=== PATIENT | female | born 1970 | race Caucasian/White ===

== ENCOUNTER 2017-11-03 02:47 | Emergency (ER) | payer BC, OTHER ==
[2017-11-03 03:16] LABS: AMPHETAMINE SCREEN URINE NOT DETECTED; BARBITURATE SCREEN URINE NOT DETECTED; BENZODIAZEPINE SCREEN URINE NOT DETECTED; COCAINE SCREEN URINE NOT DETECTED; METHADONE SCREEN URINE NOT DETECTED; METHAMPHETAMINE SCREEN NOT DETECTED; OPIATE SCREEN URINE NOT DETECTED; OXYCODONE SCREEN URINE NOT DETECTED; PHENCYCLIDINE SCREEN URINE NOT DETECTED; PROPOXYPHENE SCREEN URINE NOT DETECTED; THC SCREEN URINE NOT DETECTED; TRICYCLIC ANTIDEPRESSANT SCRN NOT DETECTED
--- NOTE | 2017-11-03 03:28 | Emergency Department Record ---
History of Present Illness - General Chief Complaint: Bloodborne Pathogen Exposure Stated Complaint: NEEDLE STICK/[employer] Time Seen by Provider: 11/03/17 03:22 Source: Patient Mode of Arrival: Ambulatory - History of Present Illness Initial comments: The patient was holding the patient port with the gauze and removing the needle from the port. It was stuck so the patient (nurse) pulled hard and it pierced her glove, knicking her left thumb with the needle. Her tetanus is UTD. - Carrier Coma Scale Eye Response: (4) Open spontaneously Motor Response: (6) Obeys commands Verbal Response: (5) Oriented [place] Total: 15 - Related Data Home Medications Medication Instructions Recorded Confirmed Last Taken No Home Med [NO HOME MEDS] 11/03/17 11/03/17 Unknown Allergies Allergy/AdvReac Type Severity Reaction Status Date / Time sertraline HCl [From Zoloft] Allergy Mild DIZZYNESS Unverified 07/21/17 10:23 Travel Screening - Travel/Exposure Within Last 30 Days Have you traveled within the last 30 days?: No - Travel Symptoms Symptom Screening: None Review of Systems Reviewed: No additional complaints except as noted below Constitutional: Reports: As per HPI. Denies: Chills, Fever, Malaise, Night sweats, Weakness, Weight change Eyes: Reports: As per HPI. Denies: Eye discharge, Eye pain, Photophobia, Vision change ENT: Reports: As per HPI. Denies: Congestion, Dental pain, Ear pain, Epistaxis , Hearing loss, Throat pain Respiratory: Reports: As per HPI. Denies: Cough, Dyspnea, Hemoptysis, Stridor, Wheezes Cardiovascular: Reports: As per HPI. Denies: Arrhythmia, Chest pain, Dyspnea on exertion, Edema, Murmurs, Orthopnea, Palpitations, Paroxysmal nocturnal dyspnea, Rheumatic Fever, Syncope Endocrine: Reports: As per HPI. Denies: Fatigue, Heat or cold intolerance, Polydipsia, Polyuria Gastrointestinal: Reports: As per HPI. Denies: Abdominal pain, Constipation, Diarrhea, Hematemesis, Hematochezia, Melena, Nausea, Vomiting Genitourinary: Reports: As per HPI. Denies: Abnormal menses, Discharge, Dyspareunia, Dysuria, Frequency, Hematuria, Incontinence, Retention, Urgency Musculoskeletal: Reports: As per HPI. Denies: Arthralgia, Back pain, Gout, Joint swelling, Myalgia, Neck pain Skin: Reports: As per HPI. Denies: Bruising, Change in color, Change in hair/ nails, Lesions, Pruritus, Rash Neurological: Reports: As per HPI. Denies: Abnormal gait, Confusion, Headache, Numbness, Paresthesias, Seizure, Tingling, Tremors, Vertigo, Weakness Psychiatric: Reports: As per HPI. Denies: Anxiety, Auditory hallucinations, Depression, Homicidal thoughts, Suicidal thoughts, Visual hallucinations Hematological/Lymphatic: Reports: As per HPI. Denies: Anemia, Blood Clots, Easy bleeding, Easy bruising, Swollen glands Past Medical History - SOCIAL HISTORY Smoking Status: Former smoker Alcohol Use: None Drug Use: None - RESPIRATORY Hx Respiratory Disorders: No - CARDIOVASCULAR Hx Cardio Disorders: No - NEURO Hx Neuro Disorders: No - GI Hx GI Disorders: No - Hx Genitourinary Disorders: No - ENDOCRINE Hx Endocrine Disorders: No - MUSCULOSKELETAL Hx Musculoskeletal Disorders: No - PSYCH Hx Psych Problems: No - HEMATOLOGY/ONCOLOGY Hx Hematology/Oncology Disorders: No Family Medical History Any Significant Family History?: Yes Hx Cancer: Grandparents *Cancer Comment: breast Hx Dementia: Grandparents Hx Diabetes: Father Hx Heart Disease: Father Physical Exam - General General Appearance: Alert, Oriented x3, Cooperative, No acute distress - Head Head exam: Normal inspection - Eye Eye exam: Normal appearance, PERRL Pupils: Normal accommodation - ENT ENT exam: Normal exam, Mucous membranes moist, Normal external ear exam, Normal orophraynx Ear exam: Normal external inspection. negative: External canal tenderness Nasal Exam: Normal inspection. negative: Discharge, Sinus tenderness Mouth exam: Normal external inspection Teeth exam: Normal inspection. negative: Dental caries Throat exam: Normal inspection. negative: Tonsillar erythema, Tonsillar exudate - Neck Neck exam: Normal inspection, Full ROM. negative: Tenderness - Respiratory Respiratory exam: negative: Respiratory distress - Cardiovascular Cardiovascular Exam: Regular rate, Normal rhythm - GI/Abdominal GI/Abdominal exam: Soft. negative: Tenderness - Rectal Rectal exam: Deferred - exam: Deferred - Extremities Extremities exam: Normal inspection, Full ROM, Normal capillary refill. negative: Tenderness Image of Hand: 1 - tiny puncture on radial aspect of left thumb nail. Bleeding controlled. - Back Back exam: Reports: Normal inspection, Full ROM. Denies: Muscle spasm, Rash noted, Tenderness - Neurological Neurological exam: Alert, CN II-XII intact, Normal gait, Oriented X3, Reflexes normal. negative: Motor sensory deficit - Psychiatric Psychiatric exam: Normal affect, Normal mood - Skin Skin exam: Dry, Intact, Normal color, Warm Course Vital Signs 11/03/17 02:49 Temperature 98.6 F Pulse Rate 72 Respiratory 20 Rate Blood Pressure 144/96 Pulse Ox 99 Medical Decision Making - Management Options MDM Management: No Additional Work-up Planned - Data Complexity MDM Data: Labs Ordered and/or Reviewed - Lab Data Lab Results 11/03/17 Range/Units 03:00 Urine Opiates Screen Not detected Ur Oxycodone Screen Not detected Urine Methadone Screen Not detected Ur Propoxyphene Screen Not detected Ur Barbiturates Screen Not detected Tricyclics Screen Not detected Ur Phencyclidine Scrn Not detected Ur Amphetamine Screen Not detected U Methamphetamines Scrn Not detected U Benzodiazepines Scrn Not detected Urine Cocaine Screen Not detected U Marijuana (THC) Screen Not detected Disposition Disposition: Discharge Clinical Impression: Occupational exposure in workplace Puncture wound of left thumb Qualifiers: Encounter type: initial encounter Qualified Code(s): S61.032A - Puncture wound without foreign body of left thumb without damage to nail, initial encounter Disposition: Home, Self-Care Condition: (1) Good Instructions: Puncture Wound (ED), Acute Wound Care (ED) Additional Instructions: Keep thumb clean and dry and covered for protection. Follow up with Employee health as needed. Tylenol or ibuprofen as directed as needed for pain. Forms: Patient Portal Access Quality - Quality Measures Quality Measures: N/A - Blood Pressure Screening Does Patient Have Any of the Following: No Blood Pressure Classification: Hypertensive Reading Systolic Measurement: 144 Diastolic Measurement: 96 Screening for High Blood Pressure: < Pre-Hypertensive BP, F/U Documented > [ [id number]] Pre-Hypertensive Follow-up Interventions: Follow-up with rescreen every year.
[2017-11-03 21:50] LABS: HEP A AB IGM Nonreactive (Nonreactive); HEPATITIS B CORE ANTIBODY,IGM Nonreactive (Nonreactive); HEPATITIS B SURFACE ANTIGEN Nonreactive (Nonreactive); HEPATITIS C VIRUS ANTIBODY Nonreactive (Nonreactive)
== END 2017-11-03 03:39 | disposition home or self-care (01) ==
LOC: ER 02:47
DX: S61.032A Puncture wound without foreign body of left thumb without damage to nail, initial encounter (principal); W45.8XXA Other foreign body or object entering through skin, initial encounter; W46.0XXA Contact with hypodermic needle, initial encounter; Y93.F9 Activity, other caregiving; Y92.238 Other place in hospital as the place of occurrence of the external cause; Y99.0 Civilian activity done for income or pay
CPT/HCPCS: 99283 ×2; 80305 ×10; 87390; G0477 ×2

== ENCOUNTER 2018-03-22 07:16 | Day surgery (SDC) | payer BC ==
[~2018-03-22 07:16] MED LIST: ACETAMINOPHEN 1,000 MG/100 ML BTL IV ONE; FAMOTIDINE 20MG TABLET PO ONE; MECLIZINE 25 MG TABLET PO ONE; METOCLOPRAMIDE 10 MG TABLET PO ONE
[2018-03-22] MEDS ORDERED: SUCCINYLCHOLINE 20 MG/ML 10ML IVP ONE (07:17)
[2018-03-22] MEDS ORDERED: PROPOFOL 10 MG/ML VIAL IV ONE (07:17)
[2018-03-22] MEDS ORDERED: BUPIVACAINE 0.25% W/EPI MPF 30ML VIAL IVP ONE (07:17)
[2018-03-22] MEDS ORDERED: DEXAMETHASONE 4 MG/ML 1ML VIAL IVP ONE (07:17)
[2018-03-22] MEDS ORDERED: FENTANYL PF 100MCG/2ML VIAL IV ONE (07:17)
[2018-03-22] MEDS ORDERED: NEOSTIGMINE 1 MG/1 ML,10ML VIAL IV ONE (07:17)
[2018-03-22] MEDS ORDERED: ONDANSETRON HCL IV 4 MG/2 ML VIAL IVP ONE (07:17)
[2018-03-22] MEDS ORDERED: LIDOCAINE 2% MDV (20MG/ML) 20ML VIAL IV ONE (07:17)
[2018-03-22] MEDS ORDERED: DESFLURANE 240 ML BTL INH ONE (07:17)
[2018-03-22] MEDS ORDERED: MIDAZOLAM HCL 2MG/2ML VIAL IV ONE (07:17)
[2018-03-22] MEDS ORDERED: KETOROLAC 30 MG/ML VIAL IVP ONE (07:17)
[2018-03-22] MEDS ORDERED: GLYCOPYRROLATE 0.2 MG/ML ML IV ONE (07:17)
--- NOTE | 2018-03-23 09:50 | Operative Note ---
DATE OF SURGERY: 03/22/2018 Surgeon: Bishnu Ward DO PREOPERATIVE DIAGNOSIS: Cholelithiasis, chronic cholecystitis. POSTOPERATIVE DIAGNOSIS: Cholelithiasis, chronic cholecystitis OPERATION: Laparoscopic cholecystectomy. Indication: The patient is a 47-year-old female who is having ongoing right subcostal postprandial pain. We did discuss cholecystectomy versus medical management. She desired surgical intervention. Risks include but are not limited to bleeding, infection, ductal injury, possible conversion to open, postoperative bile leak. She understood this fully. PROCEDURE: Thereafter, consent was signed and questions answered. She was taken to the operating room and placed in a supine position. General anesthesia was administered per the department of anesthesia. The patient's abdomen was prepped and draped in the usual sterile fashion. The patient had a fairly unfavorable location due to a fold right where her umbilicus was. I felt going infraumbilical would be best for her. Therefore, 2 mL of Sensorcaine was used to anesthetize the infraumbilical region. A 2 cm incision was made. This was carried down to the anterior rectus fascia. This was incised. Timi clamps were placed on the fascial edges and brought up into the wound. Stay sutures of 0 Vicryl were placed. Posterior rectus sheath was identified and incised. The peritoneal cavity was entered bluntly. At this time, a 10 mm blunt Armand port was placed. Adequate pneumoperitoneum was established. Under direct visualization, additional 5 mm epigastric and two 5 mm right subcostal ports were placed. The patient was rotated into reverse Trendelenburg with rotation to left. The gallbladder was identified. It was retracted in a cephalad and lateral direction opening up the angle of Calot. Due to the patient's morbid obesity and the fatty infiltration of the liver, the liver did tear a bit at the base of the falciform but this was noted to be quickly hemostatic. The hepatocystic triangle was thoroughly dissected out. There was no aberrant anatomy, no posterior ductal structures. The cystic duct and cystic artery were clearly identified. Each one was doubly clipped and cut in a standard fashion. Gallbladder essentially peeled off the liver bed. This was extracted through the infraumbilical port. Right upper quadrant was rechecked and noted to be hemostatic. I did apply FloSeal to the liver tear. This was hemostatic as well. The patient was leveled out. The pneumoperitoneum was released. All ports were removed. The fascia was closed with 0 Vicryl in a [id number] fashion. The skin at all ports was closed with 4-0 Vicryl. The patient was taken to the recovery room in satisfactory condition. FINDINGS AT THE TIME OF SURGERY: Chronic cholecystitis. CC: Dr. Laquita CAST
== END 2018-03-22 10:42 | disposition home or self-care (01) ==
LOC: SUR 07:16
PROVIDERS: ATTEND Surgery
DX: K80.10 Calculus of gallbladder with chronic cholecystitis without obstruction (principal)
CPT/HCPCS: 47562; 00790; J1885; J2405; J3010; J0330; J2710

== ENCOUNTER 2019-01-21 17:22 | Emergency (ER) | payer BC ==
[2019-01-21] MEDS ORDERED: KETOROLAC 30 MG/ML VIAL IVP ONE (17:27)
[2019-01-21] MEDS ORDERED: ACETAMINOPHEN 1,000 MG/100 ML BTL IVPB ONE (17:27)
[2019-01-21] MEDS ORDERED: ORPHENADRINE CITRATE 60MG/2ML VIAL IM ONE (17:27)
--- NOTE | 2019-01-21 17:29 | Emergency Department Record ---
History of Present Illness - General Chief Complaint: Back Pain/Injury Stated Complaint: BACK PAIN Time Seen by Provider: 01/21/19 17:26 Source: Patient Mode of Arrival: Ambulatory Limitations: No limitations - History of Present Illness Initial Comments: 48 yo female presents with back pain that started about 30-40 minutes prior to arrive. She reports she was changing position in a restaurant chair standing up and developed sharp right lower lumbar pain that radiates around to the right anterior hip. No prior back injury or surgery. No weakness or numbness. No abdominal pain. The pain is sharp and worse with any movement, walking, or changes in position. MD Complaint: Back pain -: Minutes(s) (40) Place: Home Radiation: Right leg Severity: Severe Quality: Aching, Sharp Consistency: Constant Improves With: Immobilization, Other (best if standing up) Worsens With: Movement, Sitting upright Context: Turning/twisting Associated Symptoms: Denies other symptoms - Related Data Home Medications Medication Instructions Recorded Confirmed Last Taken Adalimumab [Humira] 20 mg SQ BOLUS 01/21/19 01/21/19 Unknown Methotrexate Sodium/Pf 0.8 ml SQ WEEKLY 01/21/19 01/21/19 Unknown [Methotrexate 50 mg/2 ml Vial] Previous Rx's Medication Instructions Recorded Cyclobenzaprine HCl [Flexeril] 10 mg PO QHS #15 tab 01/21/19 Allergies Allergy/AdvReac Type Severity Reaction Status Date / Time sertraline HCl [From Zoloft] Allergy Severe altered Verified 01/21/19 17:31 mental state Review of Systems Constitutional: Denies: Chills, Fever, Malaise, Weakness Eyes: Denies: Eye discharge, Vision change ENT: Denies: Congestion, Throat pain Respiratory: Denies: Cough Cardiovascular: Denies: Chest pain, Edema Endocrine: Denies: Fatigue Gastrointestinal: Denies: Abdominal pain, Constipation, Diarrhea, Nausea, Vomiting Genitourinary: Denies: Dysuria, Urgency Musculoskeletal: Reports: Arthralgia, Back pain, Myalgia Skin: Denies: Bruising, Change in color, Rash Neurological: Denies: Abnormal gait, Headache, Numbness, Tingling, Weakness Psychiatric: Denies: Anxiety Hematological/Lymphatic: Denies: Easy bleeding, Easy bruising Past Medical History - SOCIAL HISTORY Smoking Status: Former smoker - RESPIRATORY Hx Respiratory Disorders: No - CARDIOVASCULAR Hx Cardio Disorders: Yes Hx Hypertension: Yes (radha & monitoring BP) - NEURO Hx Neuro Disorders: No - GI Hx GI Disorders: Yes Hx Abdominal Pain: Yes (gallstones) Hx Nausea/Vomiting: Yes (gallstones) - Hx Genitourinary Disorders: Yes Hx Bladder Problem: No (bladder sling sx) Comment:: hysterectomy - ENDOCRINE Hx Endocrine Disorders: No - MUSCULOSKELETAL Hx Musculoskeletal Disorders: No Hx Arthritis: Yes (rt ankle) - PSYCH Hx Psych Problems: Yes Hx Anxiety: Yes (on Prozac) - HEMATOLOGY/ONCOLOGY Hx Hematology/Oncology Disorders: No Family Medical History Hx Cancer: Grandparents *Cancer Comment: breast Hx Dementia: Grandparents Hx Diabetes: Father Hx Heart Disease: Father Physical Exam - General General Appearance: Alert, Oriented x3, Cooperative, No acute distress Limitations: No limitations - Head Head exam: Atraumatic, Normal inspection - Eye Eye exam: Normal appearance. negative: Conjunctival injection - ENT ENT exam: Normal exam Ear exam: Normal external inspection Nasal Exam: Normal inspection Mouth exam: Normal external inspection - Neck Neck exam: Normal inspection - Respiratory Respiratory exam: Normal lung sounds bilaterally. negative: Respiratory distress, Rhonchi, Stridor, Wheezes - Cardiovascular Cardiovascular Exam: Regular rate, Normal rhythm, Normal heart sounds - GI/Abdominal GI/Abdominal exam: Soft. negative: Distended, Guarding, Tenderness - Rectal Rectal exam: Deferred - exam: Deferred - Extremities Extremities exam: Normal inspection, Normal capillary refill. negative: Calf tenderness, Full ROM (limited right hip movement due to lumbar pain), Pedal edema Image of Full Body: 1 - tender to the right lower lumbar area - Back Back exam: Reports: Normal inspection, Paraspinal tenderness, Tenderness, Vertebral tenderness. Denies: Full ROM, Rash noted - Neurological Neurological exam: Alert, Oriented X3. negative: Motor sensory deficit - Psychiatric Psychiatric exam: Normal affect, Normal mood. negative: Agitated, Anxious - Skin Skin exam: Dry, Intact, Normal color, Warm Course - Reevaluation(s) Reevaluation #1: 01/21/19 18:34 On recheck the pain is improved with much less spasm The XR reports were reviewed. Degenerative changes noted bilateral hips (mild) and lumbar. No other acute process. We discussed the results and the plan for DC 01/21/19 18:42 At [place] she is now up ambulatory without assistance. Pain is still present but tolerable Disposition Disposition: Discharge Clinical Impression: Lumbar pain Disposition: Home, Self-Care Condition: (1) Good Instructions: Low Back Strain (ED) Additional Instructions: Avoid lifting, bending and twisting You may take Naproxen as directed and Tylenol for pain Take Flexeril as directed at bedtime for muscle spasm Return or be seen if worse, any new symptoms or concerns such as numbness, weakness, or any other concerns. Prescriptions: Cyclobenzaprine HCl [Flexeril] 10 mg PO QHS #15 tab Forms: Patient Portal Access Time of Disposition: 18:38 Quality - Quality Measures Quality Measures: N/A - Blood Pressure Screening Does Patient Have Any of the Following: Active Dx of HTN Blood Pressure Classification: Hypertensive Reading Systolic Measurement: 170 Diastolic Measurement: 91 Screening for High Blood Pressure: Patient Exclusion, Hx of HTN [G9744]
[2019-01-21] MEDS ORDERED: CYCLOBENZAPRINE 10MG TABLET PO ONE (18:37)
--- NOTE | 2019-01-23 21:21 | RADIOLOGY REPORT ---
EXAM: LUMBAR SPINE W/OBLIQUES HISTORY: LUMBAR PAIN EXTENDING DOWN RIGHT LEG, ACUTE ONSET THIS AFTERNOON. SHARP PAIN. TECHNIQUE: Six views of the lumbar spine. COMPARISON: None. ENCOUNTER: Nonapplicable. FINDINGS: Narrowing of the lumbosacral interspace with some hypertrophic spurring including posteriorly. Elsewhere, the lumbar intervertebral disc spaces appear relatively maintained with some minor spurring elsewhere in the lumbar spine as well as some spurring in the visualized lower thoracic spine. No fracture of the lumbar spine identified and no definite destructive lesion seen. Prominent amount of stool throughout the colon raising the possibility of constipation. IMPRESSION: 1. DEGENERATIVE CHANGES IN THE LUMBAR SPINE, MOST MARKED AT THE LUMBOSACRAL INTERSPACE. 2. PROMINENT AMOUNT OF STOOL THROUGHOUT THE COLON SUGGESTING CONSTIPATION. JOB NUMBER: [id number] [facility]
--- NOTE | 2019-01-23 21:24 | RADIOLOGY REPORT ---
EXAM: HIP,UNILAT, 2-3 VIEW RIGHT HISTORY: SEVERE PAIN RIGHT LOWER BACK EXTENDING INTO RIGHT LEG. ACUTE ONSET THIS AFTERNOON. NO TRAUMA. TECHNIQUE: AP pelvis, AP/lateral right hip. COMPARISON: No prior pelvis or right hip series. FINDINGS: There is probably spina bifida of S1. Mild degenerative change at the pubic symphysis. Right hip appears essentially negative with no definite bony or adjacent soft tissue abnormality identified. Minor spurring at the greater trochanters bilaterally. IMPRESSION: RIGHT HIP APPEARS ESSENTIALLY NEGATIVE. SOME SPURRING AT THE GREATER TROCHANTERS BILATERALLY. JOB [facility]BER: [id number] [facility]
== END 2019-01-21 18:52 | disposition home or self-care (01) ==
LOC: ER 17:22
DX: G89.11 Acute pain due to trauma (principal); M54.5 Low back pain; M62.830 Muscle spasm of back; I10 Essential (primary) hypertension; Z87.891 Personal history of nicotine dependence; X50.0XXA Overexertion from strenuous movement or load, initial encounter; Y92.009 Unspecified place in unspecified non-institutional (private) residence as the place of occurrence of the external cause
CPT/HCPCS: 99284 ×2; 96372; 96365; 96375; 72110; 73502; J1885; J2360

== ENCOUNTER 2019-07-14 08:55 | Day surgery (SDC) | payer BC ==
[2019-07-14] MEDS ORDERED: LIDOCAINE 2% MDV (20MG/ML) 20ML VIAL IV ONE (08:56)
[2019-07-14] MEDS ORDERED: FENTANYL PF 100MCG/2ML VIAL IV ONE (08:56)
[2019-07-14] MEDS ORDERED: PROPOFOL 10 MG/ML VIAL IV ONE (08:56)
--- NOTE | 2019-07-22 10:51 | Operative Note ---
OPERATION: 1. ESOPHAGOGASTRODUODENOSCOPY with biopsy. 2. COLONOSCOPY with cold forceps and cold snare polypectomies. PREOPERATIVE DIAGNOSES: 1. Reflux. 2. Colon cancer screening. POSTOPERATIVE DIAGNOSES: 1. Gastritis. 2. Colon polyps. 3. Fair prep. PROCEDURE: After informed consent was obtained from the patient, she was placed in the left lateral decubitus position in the endoscopy suite, sedated and monitored by the department of anesthesia. A well-lubricated [id number] gastroscope was placed in the posterior oropharynx under direct visualization and passed to the proximal esophagus. The endoscope was advanced through the proximal, mid, and distal esophagus. The GE junction was unremarkable. There were no obvious changes that would suggest Pratt's. The gastric body and antrum were inspected revealing patchy antral erythema. The duodenal bulb and sweep and pylorus were unremarkable. J-turn views of the proximal stomach were unremarkable. The endoscope was straightened. Gastric biopsies were obtained. The endoscope was removed from the patient with no new findings noted. Digital rectal exam was unremarkable. A well-lubricated [id number] colonoscope was inserted into the rectum and advanced to the cecum. Preparation quality was fair. Numerous areas were rinsed and lavaged and evacuated. Small polyps may have been obscured by the preparation quality. The cecum, cecal bulb, ileocecal valve, ascending colon, and transverse colon were unremarkable. In the descending colon, there was a 5 mm polyp removed with a cold snare and retrieved. There was a 3-4 mm sigmoid polyp removed with a cold forceps and retrieved. Forward and J-turn views of the rectum and anorectum and repeated views of the sigmoid colon and descending colon were otherwise unremarkable. The endoscope was straightened, the rectal ampulla deflated, and the endoscope was removed. RECOMMENDATIONS: The patient should undergo repeat colonoscopy in 3 years due to the preparation quality. She should continue her current medical program. As always, thank you for allowing me to participate in the healthcare of your patients. SERENE
== END 2019-07-14 11:38 | disposition home or self-care (01) ==
LOC: HOP 08:55
PROVIDERS: ATTEND Internal Medicine Gastroenterology
DX: Z12.11 Encounter for screening for malignant neoplasm of colon (principal); D12.4 Benign neoplasm of descending colon; K21.9 Gastro-esophageal reflux disease without esophagitis; K29.50 Unspecified chronic gastritis without bleeding; D12.5 Benign neoplasm of sigmoid colon; I10 Essential (primary) hypertension
CPT/HCPCS: 45385; 45380; 43239; 00813; J3010